=== PATIENT | male | born 1950 | race Caucasian/White ===

== ENCOUNTER 2017-09-30 14:10 | Emergency (ER) | payer MEDICARE ==
[~2017-09-30] VITALS: Ht 185.4 cm; Wt 125.0 kg
[2017-09-30 16:30] LABS: HEMATOCRIT 46.3 % (39.0-50.0); HEMOGLOBIN 15.3 g/dl (14.0-18.0); IMMATURE GRANULOCYTES 0.4 % (0.0-1.0); MEAN CELL VOLUME 93.5 fL CALC (80.0-100.0); MEAN CORPUSCULAR HGB 30.9 pG CALC (26.0-32.0); NEUT# 3.12 thou/uL (1.82-7.42); RED BLOOD COUNT 4.95 mill/uL (4.70-6.10); RED CELL DISTRI WIDTH 12.4 % (11.5-15.5)
[2017-09-30 16:46] LABS: ANION GAP 17 (6-22 (CALC)); BUN 19 mg/dL (8-23); BUN/CREATININE RATIO 16 (12-20 (CALC)); CARBON DIOXIDE 24 mmol/l (22-30); CHLORIDE 105 mmol/l (95-108); CREATININE 1.2 mg/dL (0.7-1.3); GFR > 60 ML/MIN (>=60 (CALC)); GFR FOR AFR.AMER. > 60 ML/MIN (>=60 (CALC)); POTASSIUM 4.2 mmol/l (3.5-5.1); SODIUM 142 mmol/l (137-146)
[2017-09-30 17:26] VITALS: BP 168/92
== END 2017-09-30 17:30 | disposition home or self-care (01) ==
LOC: ED 14:10
PROVIDERS: Family Medicine
DX: R55 Syncope and collapse (principal); I10 Essential (primary) hypertension

== ENCOUNTER 2017-10-11 11:17 | Emergency (ER) | payer MEDICARE ==
[~2017-10-11] VITALS: Ht 185.4 cm; Wt 118.0 kg
[2017-10-11 12:17] LABS: HEMOGLOBIN 13.5 g/dl (14.0-18.0); MEAN CORPUSCULAR HGB 30.5 pG CALC (26.0-32.0); MEAN CORPUSCULAR HGB CONC 33.6 g/L CALC (32.0-36.0); NEUT# 16.6 thou/uL (1.82-7.42); RED BLOOD COUNT 4.42 mill/uL (4.70-6.10)
[2017-10-11 12:27] LABS: ALBUMIN 3.2 g/dL (3.2-5.0); ALKALINE PHOSPHATASE 212 u/l (38-126); BILIRUBIN, TOTAL 1.8 mg/dL (0.0-1.4); BUN 38 mg/dL (8-23); BUN/CREATININE RATIO 37 (12-20 (CALC)); CARBON DIOXIDE 25 mmol/l (22-30); GFR > 60 ML/MIN (>=60 (CALC)); GFR FOR AFR.AMER. > 60 ML/MIN (>=60 (CALC)); POTASSIUM 3.7 mmol/l (3.5-5.1); SGOT/AST 42 u/l (19-48); SGPT/ALT 42 u/l (11-66); TOTAL PROTEIN 6.5 g/dL (6.3-8.2)
[2017-10-11 12:28] LABS: ANION GAP 21 (6-22 (CALC)); CHLORIDE 91 mmol/l (95-108); SODIUM 133 mmol/l (137-146)
[2017-10-11 12:34] LABS: HEMATOCRIT 40.2 % (39.0-50.0)
[2017-10-11 12:35] LABS: IMMATURE GRANULOCYTES 6.9 % (0.0-1.0)
[2017-10-11 12:38] LABS: MYOGLOBIN 57 ng/mL (0 - 121)
[2017-10-11 16:20] VITALS: BP 137/73
== END 2017-10-11 16:05 | disposition short-term general hospital (02) ==
LOC: ED 11:17
PROVIDERS: Emergency Medicine
DX: J18.9 Pneumonia, unspecified organism (principal); J94.2 Hemothorax; J98.4 Other disorders of lung; R91.8 Other nonspecific abnormal finding of lung field; I10 Essential (primary) hypertension; R06.02 Shortness of breath
CPT/HCPCS: Q9967